=== PATIENT | male | born 1965 | race Two or more races ===

== ENCOUNTER → 2016-05-10 | Outpatient (CLI) | payer OTHER ==
[2016-05-10 11:16] LABS: BASOPHIL % 0.2 %; EOSINOPHIL # 0.1 K/uL (0.0-0.5); EOSINOPHIL % 1.1 %; HEMATOCRIT 42.9 % (37.0-53.0); IMMATURE GRANULOCYTE % 0.3 %; LYMPHOCYTE # 1.4 K/uL (0.8-4.0); LYMPHOCYTE % 21.6 %; MCH 29.2 pg (27.0-34.0); MCHC 32.6 gm/dL (32.0-36.5); MCV 89.4 fl (83.0-98.0); MONOCYTE # 0.3 K/uL (0.0-1.0); MPV 10.8 fl (9.4-12.4); NEUTROPHIL # (ANC) 4.6 K/uL (1.4-9.0); NEUTROPHIL % 71.8 %; NRBC % 0 /100WBC (0-0.00); PLATELET COUNT 150 K/uL (150-450); RDW-CV 13.4 % (11.9-14.6); WBC 6.4 K/uL (4.0-11.0)
[2016-05-10 11:35] LABS: ALBUMIN 3.7 gm/dL (3.5-5.0); ALK PHOS 89 IU/L (33-138); ALT 35 IU/L (12-78); ANION GAP 11.1 (10.0-19.0); AST 24 IU/L (10-40); BLOOD UREA NITROGEN 19 mg/dL (6-24); CALCIUM 8.7 mg/dL (8.5-10.5); CHLORIDE 104 mMol/L (96-110); CO2 28 mMol/L (22-32); CREATININE 0.8 mg/dL (0.6-1.3); ESTIMATED GFR (MDRD EQUATION) > 60; MAGNESIUM 1.5 mg/dL (1.3-2.6); POTASSIUM 4.1 mMol/L (3.7-5.1); SODIUM 139 mMol/L (135-145); TOTAL BILIRUBIN 0.5 mg/dL (0.0-1.5); TOTAL PROTEIN 7.3 g/dL (6.0-8.4)
== END ==
LOC: GLAB 10:52
PROVIDERS: Internal Medicine
DX: Z48.21 Encounter for aftercare following heart transplant (principal); E11.9 Type 2 diabetes mellitus without complications; Z94.1 Heart transplant status

== ENCOUNTER → 2016-07-11 | Outpatient (CLI) | payer OTHER ==
[2016-07-11 12:22] LABS: ANION GAP 13.5 (10.0-19.0); BLOOD UREA NITROGEN 21 mg/dL (6-24); CALCIUM 9.2 mg/dL (8.5-10.5); CHLORIDE 106 mMol/L (96-110); CO2 26 mMol/L (22-32); CREATININE 0.8 mg/dL (0.6-1.3); ESTIMATED GFR (MDRD EQUATION) > 60; MAGNESIUM 1.8 mg/dL (1.8-2.6); POTASSIUM 4.5 mMol/L (3.7-5.1); SODIUM 141 mMol/L (135-145)
== END | disposition disaster alternative care site (69) ==
LOC: GLAB 11:30
PROVIDERS: Internal Medicine Interventional Cardiology
DX: Z48.21 Encounter for aftercare following heart transplant (principal); Z94.1 Heart transplant status

== ENCOUNTER → 2016-11-01 | Outpatient (CLI) | payer OTHER ==
[2016-11-01 10:46] LABS: HEMATOCRIT 41.2 % (37.0-53.0); MCH 30.2 pg (27.0-34.0); MPV 10.5 fl (9.4-12.4); PLATELET COUNT 145 K/uL (150-450); RBC 4.63 M/uL (4.00-6.00); RDW-CV 13.6 % (11.9-14.6); WBC 7.2 K/uL (4.0-11.0)
[2016-11-01 11:12] LABS: ALBUMIN 3.7 gm/dL (3.5-5.0); ALK PHOS 99 IU/L (33-138); ALT 34 IU/L (12-78); ANION GAP 11.1 (10.0-19.0); AST 21 IU/L (10-40); BLOOD UREA NITROGEN 19 mg/dL (6-24); CALCIUM 8.8 mg/dL (8.5-10.5); CHLORIDE 106 mMol/L (96-110); CO2 26 mMol/L (22-32); CREATININE 0.9 mg/dL (0.6-1.3); POTASSIUM 4.1 mMol/L (3.7-5.1); SODIUM 139 mMol/L (135-145); TOTAL BILIRUBIN 0.3 mg/dL (0.0-1.5); TOTAL PROTEIN 7.4 g/dL (6.0-8.4)
[2016-11-01 11:26] LABS: ABSOLUTE NEUTROPHIL CT (ANC) 5.2 K/uL (1.4-9.0); BANDED NEUTROPHIL # 0.4 K/uL (0.0-0.1); BANDED NEUTROPHILS % 5 %; LYMPHOCYTE # 1.8 K/uL (0.8-4.0); LYMPHOCYTE % 25 %; MONOCYTE # 0.2 K/uL (0.0-1.0); SEGMENTED NEUTROPHIL # 4.8 K/uL (1.4-9.0); SEGMENTED NEUTROPHIL % 67 %
== END | disposition disaster alternative care site (69) ==
LOC: GLAB 10:00
PROVIDERS: Internal Medicine Interventional Cardiology
DX: Z48.21 Encounter for aftercare following heart transplant (principal); Z94.1 Heart transplant status

== ENCOUNTER → 2016-11-14 | Outpatient (CLI) | payer OTHER ==
[2016-11-14 11:43] LABS: MAGNESIUM 1.6 mg/dL (1.8-2.6); PHOSPHORUS 2.9 mg/dL (2.5-4.9)
== END | disposition disaster alternative care site (69) ==
LOC: GLAB 10:46
PROVIDERS: Internal Medicine Interventional Cardiology
DX: Z48.22 Encounter for aftercare following kidney transplant (principal); Z94.0 Kidney transplant status; Z94.83 Pancreas transplant status; Z79.899 Other long term (current) drug therapy